=== PATIENT | female | born 1985 | race Caucasian/White ===

== ENCOUNTER 2017-04-30 08:00 | Outpatient (CLI) | payer MEDICAID ==
[2017-04-30 18:57] LABS: BILIRUBIN,URINE NEGATIVE (NEGATIVE)
[2017-04-30 19:18] LABS: UR CULTURE IF IND NOT INDICATED; WBC,URINE 0-3 /HPF (0-5)
== END 2017-04-30 08:01 | disposition home or self-care (01) ==
LOC: LAB.R 08:00
PROVIDERS: ATTEND Nurse Practitioner Family
DX: R63.1 Polydipsia (principal)
CPT/HCPCS: 81001; 87086

== ENCOUNTER 2018-01-22 22:57 | Emergency (ER) | payer MEDICAID ==
[2018-01-22 23:13] VITALS: BP 134/94
[2018-01-22] MEDS ORDERED: BUPIVACAINE 0.5% PF 30 ML VIAL SUBQ STA (23:20)
[2018-01-22] MEDS ORDERED: BUPIVACAINE 0.25% PF 30 ML VIAL SUBQ STA (23:24)
--- NOTE | 2018-01-22 23:44 | ED Physician Documentation ---
PD HPI HEENT - Stated complaint Stated Complaint: DENTAL PAIN - Chief complaint Chief Complaint: Heent - History obtained from History obtained from: Patient - History of Present Illness Timing - onset: Chronic Timing - details: Gradual onset, Still present Location: Tooth Worsens: Temperatures Similar symptoms before: Work up / diagnostics, Treatment - Additional information Additional information: Patient is a 32 year old female presenting to the emergency department for dental pain. Patient states that she has really bad teeth and she is supposed to have dental follow up in a few days but she cannot get any pain relief. 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 - Present Medications Home Medications: Ambulatory Orders Medication Instructions Recorded Confirmed Dicyclomine HCl [Bentyl] 20 mg PO TID PRN #30 tablet 06/24/14 HYDROcod/ACETAM 5/325 [Vicodin 1 - 2 ea PO Q6H PRN #15 tablet 06/24/14 5/325] Levonorgestrel [Mirena] 06/24/14 06/24/14 - Allergies Allergies/Adverse Reactions: Allergies Allergy/AdvReac Type Severity Reaction Status Date / Time No Known Drug Allergies Allergy Verified 02/26/13 20:35 - Social History Does the pt smoke?: Yes Smoking Status: Current every day smoker Does the pt drink ETOH?: Yes Does the pt have substance abuse?: No - Immunizations Immunizations are current?: Yes - POLST Patient has POLST: Yes PD ED PE NORMAL - General General: Alert and oriented X 3 - HEENT HEENT: Atraumatic - Neck Neck: No adenopathy - Cardiac Cardiac: RRR - Respiratory Respiratory: No respiratory distress - Derm Derm: Normal color - Extremities Extremities: No deformity - Neuro Eye Opening: Spontaneous PD ED PE EXPANDED - General General: Alert, In Pain - HEENT HEENT: Dental decay, Dental TTP, Other (many missing teeth, the only superior and inferior molars remaining on the right are both cracked. no surrounding abscess or fluid collection). No: Dental abscess Results - Vitals Vitals: Vital Signs - 24 hr 01/22/18 23:01 Heart Rate 98 Respiratory 16 Rate Blood Pressure 134/94 H O2 Saturation 96 Oxygen O2 Source Room air Procedures - Regional nerve block Nerve block site: Post superior alveolar, Inferior alveolar Nerve block anesthesia: Marcaine 0.25% Nerve block aftercare: Excellent anesthesia, No complications PD MEDICAL DECISION MAKING - ED course Complexity details: reviewed old records, reviewed results, re-evaluated patient , considered differential, d/w patient ED course: Patient was seen and examined at bedside. Patient did have cracked teeth and likely exposed roots. superior alveolar and inferior alveolar nerve blocks were performed. cavit was placed on both teeth. Patient had good pain relief. Patient required no further work up and was stable for discharge with outpatient follow up. - Sepsis Event Vital Signs: Vital Signs - 24 hr 01/22/18 23:01 Heart Rate 98 Respiratory 16 Rate Blood Pressure 134/94 H O2 Saturation 96 Oxygen O2 Source Room air Departure - Departure Disposition: 01 Home, Self Care Clinical Impression: Pain due to dental caries Condition: Good Instructions: ED Tooth Pain Follow-Up: primary,dentist [Other] Comments: Your symptoms are likely being caused by exposed nerve roots. Ultimately you will need to follow up with your dentist and have your teeth pulled. you can replace the cavit (cement substance) if it falls out. You should take ibuprofen 600mg with tylenol 1000mg for pain relief. you should avoid very hot or very cold foods. you may return to the emergency department at any time for new, worsening or uncontrollable symptoms.
== END 2018-01-22 23:48 | disposition home or self-care (01) ==
LOC: ED 22:57
DX: K02.9 Dental caries, unspecified (principal); F17.200 Nicotine dependence, unspecified, uncomplicated
CPT/HCPCS: 64400; 99282

== ENCOUNTER 2018-02-16 22:17 | Outpatient (CLI) | payer MEDICAID | END 2018-02-16 22:18 | disposition critical access hospital (66) | LOC: EMS 22:17 | PROVIDERS: ATTEND Surgery | DX: R40.20 Unspecified coma (principal); R06.81 Apnea, not elsewhere classified | CPT/HCPCS: A0425; A0427; A0999 ==

== ENCOUNTER 2018-02-16 22:46 | Emergency (ER) | payer MEDICAID ==
[2018-02-16] MEDS ORDERED: SODIUM CHLORIDE 0.9% 1,000 ML IV ONE (23:06)
[2018-02-16 23:35] LABS: MUDS CUTOFF CONCENTRATIONS CUTOFF CONC BELOW:
[2018-02-17 00:13] LABS: AMPHETAMINE SCREEN,URINE NEGATIVE (NEGATIVE); BENZODIAZEPINES SCREEN, URINE NEGATIVE (NEGATIVE); COCAINE SCREEN URINE NEGATIVE (NEGATIVE); METHADONE SCREEN, URINE NEGATIVE (NEGATIVE); METHAMPHETAMINES SCREEN, URINE NEGATIVE (NEGATIVE); OPIATE SCREEN, URINE POSITIVE (NEGATIVE); OXYCODONE SCREEN, URINE NEGATIVE (NEGATIVE); PROPOXYPHENE SCREEN, URINE NEGATIVE (NEGATIVE); TRICYCLIC ANTIDEPRESSANT,URINE NEGATIVE (NEGATIVE)
--- NOTE | 2018-02-17 00:54 | ED Physician Documentation ---
History of Present Illness - Stated complaint Stated Complaint: Poss OD - Chief complaint Chief Complaint: MHE - History obtained from History obtained from: Patient - History of Present Illness Timing: Today - Additonal information Additional information: patient says she was with friend this evening, had dental pain due to recent procedure, and a friend gave he a pill that she says dont know, but I think it was oxy 30 mg tab (per patient). She took this and does not remember anything until being woken by medics after giving her narcan. she feel fine now but agrees with transport. on presentstion, she had no c/o. Review of Systems Cardiac: reports: Reviewed and negative Respiratory: reports: Reviewed and negative GI: reports: Reviewed and negative Neurologic: reports: Altered mental status, Unresponsive, LOC. 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 - Present Medications Home Medications: Ambulatory Orders Medication Instructions Recorded Confirmed Levonorgestrel [Mirena] 06/24/14 06/24/14 Sertraline [Zoloft] 100 mg PO DAILY 02/16/18 - Allergies Allergies/Adverse Reactions: Allergies Allergy/AdvReac Type Severity Reaction Status Date / Time No Known Drug Allergies Allergy Verified 02/16/18 22:54 - Social History Does the pt smoke?: Yes Smoking Status: Current every day smoker Does the pt drink ETOH?: Yes Does the pt have substance abuse?: No Substance Use and Type: Marijuana - Immunizations Immunizations are current?: Yes - POLST Patient has POLST: Yes PD ED PE NORMAL - Vitals Vital signs reviewed: Yes - General General: Alert and oriented X 3, No acute distress, Well developed/nourished - HEENT HEENT: Atraumatic, PERRL, EOMI, Moist mucous membranes - Neck Neck: No bony TTP - Cardiac Cardiac: RRR, No murmur - Respiratory Respiratory: No respiratory distress, Clear bilaterally - Derm Derm: Normal color, Warm and dry - Neuro Neuro: Alert and oriented X 3, hand welt butter 2-12 intact, No motor deficit, No sensory deficit, Normal speech Results - Vitals Vitals: Oxygen O2 Source Room air - Labs Labs: Laboratory Tests 02/16/18 23:17 Urine Opiates Screen POSITIVE H Ur Oxycodone Screen NEGATIVE Urine Methadone Screen NEGATIVE Ur Propoxyphene Screen NEGATIVE Ur Barbiturates Screen NEGATIVE Ur Tricyclics Screen NEGATIVE Ur Phencyclidine Scrn NEGATIVE Ur Amphetamine Screen NEGATIVE U Methamphetamines Scrn NEGATIVE U Benzodiazepines Scrn NEGATIVE Urine Cocaine Screen NEGATIVE U Cannabinoids Screen NEGATIVE PD MEDICAL DECISION MAKING - ED course Complexity details: considered differential, d/w patient - Sepsis Event Vital Signs: Oxygen O2 Source Room air Departure - Departure Disposition: 01 Home, Self Care Clinical Impression: Drug overdose Qualifiers: Encounter type: initial encounter Injury intent: accidental or unintentional Qualified Code(s): T50.901A - Poisoning by unspecified drugs, medicaments and biological substances, accidental (unintentional), initial encounter Condition: Good Instructions: ED Overdose Accidental Discharge Date/Time: 02/17/18 01:17
[2018-02-17 00:56] VITALS: BP 122/83
== END 2018-02-17 01:17 | disposition home or self-care (01) ==
LOC: EDUNIT# → ED 22:46
DX: T50.901A Poisoning by unspecified drugs, medicaments and biological substances, accidental (unintentional), initial encounter (principal); I10 Essential (primary) hypertension; F17.200 Nicotine dependence, unspecified, uncomplicated
CPT/HCPCS: 80306; 93005; 96360; 99283

== ENCOUNTER 2018-05-05 02:59 | Emergency (ER) | payer MEDICAID ==
--- NOTE | 2018-05-05 03:39 | ED Physician Documentation ---
History of Present Illness - Stated complaint Stated Complaint: MED WITHDRAWAL - Chief complaint Chief Complaint: General - History obtained from History obtained from: Patient - History of Present Illness Timing: Enter time (01:30) Pain level now: 3 Improved by: nothing Worsened by: no exacerbating factors - Additonal information Additional information: patient says she has been taking fentanyl, obtained on the street, for several weeks. Yesterday, she was seen at a clinic in [facility], was prescribed Suboxone, took first dose at 1:30 this morning. She feels that this has put me into acute withdrawal. She complains of generalized anxiety, tremulousness. of note, patient presents with a friend who is also registered as a patient in the emergency department for the exact same thing (also withdrawing from fentanyl, also saw same clinic, also took first dose of suboxone tonight). Review of Systems Constitutional: reports: Chills, Myalgias, Sweats Cardiac: reports: Reviewed and negative Respiratory: reports: Reviewed and negative GI: denies: Abdominal Pain, Nausea, Vomiting Psychiatric: reports: Anxiety, Insomnia. 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 - Present Medications Home Medications: Ambulatory Orders Medication Instructions Recorded Confirmed Levonorgestrel [Mirena] 06/24/14 06/24/14 Sertraline [Zoloft] 100 mg PO DAILY 02/16/18 LORazepam [Lorazepam] 1 - 2 mg PO TID PRN #14 tablet 05/05/18 - Allergies Allergies/Adverse Reactions: Allergies Allergy/AdvReac Type Severity Reaction Status Date / Time No Known Drug Allergies Allergy Verified 05/05/18 03:25 - Social History Does the pt smoke?: Yes Smoking Status: Current every day smoker Does the pt drink ETOH?: Yes Does the pt have substance abuse?: No - Immunizations Immunizations are current?: Yes - POLST Patient has POLST: Yes PD ED PE NORMAL - Vitals Vital signs reviewed: Yes - General General: Alert and oriented X 3, Well developed/nourished, Other (appears mildly anxious) - HEENT HEENT: Moist mucous membranes - Cardiac Cardiac: RRR, No murmur - Respiratory Respiratory: No respiratory distress, Clear bilaterally - Abdomen Abdomen: Normal bowel sounds, Soft, Non tender - Neuro Neuro: Alert and oriented X 3 Eye Opening: Spontaneous Motor: Obeys Commands Verbal: Oriented GCS Score: 15 Results - Vitals Vitals: Oxygen O2 Source Room air PD MEDICAL DECISION MAKING - ED course Complexity details: reviewed old records, considered differential, d/w patient ED course: given ativan and clonidine, rx for same. she did not bargain or argue over medications, made no requests for specific medications nor doses, and seemed co ntent with plan. - Sepsis Event Vital Signs: Oxygen O2 Source Room air Departure - Departure Disposition: Home, Self Care Clinical Impression: Narcotic withdrawal Condition: Good Instructions: ED Withdrawal Narcotic Follow-Up: [facility] [Provider Group] [facility] [Provider Group] Prescriptions: LORazepam [Lorazepam] 1 - 2 mg PO TID PRN #14 tablet PRN Reason: Anxiety Discharge Date/Time: 05/05/18 05:00
[2018-05-05] MEDS ORDERED: cloNIDine 0.1 MG TABLET PO STA (03:53)
[2018-05-05] MEDS ORDERED: LORazepam 0.5 MG TABLET PO STA (03:58)
[2018-05-05 04:56] VITALS: BP 108/57
== END 2018-05-05 05:00 | disposition home or self-care (01) ==
LOC: ED 02:59
DX: F11.23 Opioid dependence with withdrawal (principal); T40.2X5A Adverse effect of other opioids, initial encounter; I10 Essential (primary) hypertension; F17.200 Nicotine dependence, unspecified, uncomplicated
CPT/HCPCS: 99283; A9270

== ENCOUNTER 2019-02-01 07:56 | Outpatient (CLI) | payer SELFPAY ==
[2019-02-01 10:25] LABS: BASOPHILS % (AUTO) 0.5 %; EOSINOPHILS # (AUTO) 0.3 10^3/uL (0.0-0.7); EOSINOPHILS % (AUTO) 4.6 %; HGB - HEMOGLOBIN 14.1 g/dL (12.0-16.0); LYMPHOCYTES # (AUTO) 2.2 10^3/uL (1.5-3.5); LYMPHOCYTES % (AUTO) 39.9 %; MEAN CORPUSCULAR HEMOGLOBIN 31.8 pg (27.0-31.0); MEAN CORPUSCULAR VOLUME 96.4 fL (81.0-99.0); MEAN PLATELET VOLUME 9.7 fL (7.9-10.8); MONOCYTES # (AUTO) 0.7 10^3/uL (0.0-1.0); MONOCYTES % (AUTO) 11.6 %; NEUTROPHILS # (AUTO) 2.4 10^3/uL (1.5-6.6); NEUTROPHILS % (AUTO) 43.2 %; PLT - PLATELET COUNT 240 10^3/uL (130-450); RED BLOOD COUNT 4.43 10^6/uL (4.20-5.40); RED CELL DISTRIBUTION WIDTH 11.9 % (12.0-15.0); WHITE BLOOD COUNT 5.6 x10^3/uL (4.8-10.8)
[2019-02-01 10:37] LABS: ALBUMIN/GLOBULIN RATIO 1.3 (1.0-2.2); ALKALINE PHOSPHATASE 38 IU/L (42-121); ALT ALANINE AMINOTRANSFERASE 27 IU/L (10-60); AST ASPARTATE AMINOTRANSFERASE 46 IU/L (10-42); BILIRUBIN,TOTAL 0.7 mg/dL (0.2-1.0); BUN - BLOOD UREA NITROGEN 13 mg/dL (6-20); CALCIUM 9.3 mg/dL (8.5-10.3); CARBON DIOXIDE - CO2 25 mmol/L (21-32); CHLORIDE 101 mmol/L (101-111); CHOL/HDL RATIO 3.3 (<4.4); CHOLESTEROL 187 mg/dL; CREATININE 0.5 mg/dL (0.4-1.0); GFR - MDRD 141 (>89); GLUCOSE 104 mg/dL (70-100); HDL CHOLESTEROL 57 mg/dL; LDL CHOLESTEROL,CALCULATED 82 mg/dL; LDL/HDL RATIO 1.4 (<4.4); SODIUM 137 mmol/L (135-145); TOTAL PROTEIN 7.2 g/dL (6.7-8.2); VLDL CHOLESTEROL 48 mg/dL
== END 2019-02-01 07:57 | disposition home or self-care (01) ==
LOC: LAB.F 07:56
PROVIDERS: ATTEND Physician Assistant Medical
DX: I10 Essential (primary) hypertension (principal); E04.9 Nontoxic goiter, unspecified; Z13.29 Encounter for screening for other suspected endocrine disorder; Z13.89 Encounter for screening for other disorder
CPT/HCPCS: 36415; 80050; 80061; 83721

== ENCOUNTER 2019-05-31 21:00 | Emergency (ER) | payer SELFPAY ==
[2019-05-31] MEDS ORDERED: BUPRENORPHINE 0.3 MG/ML VIAL IM ONE (21:19)
--- NOTE | 2019-05-31 21:22 | ED Physician Documentation ---
History of Present Illness - Stated complaint Stated Complaint: OPIATE WITHDRAWAL - Chief complaint Chief Complaint: General - History obtained from History obtained from: Patient - History of Present Illness Timing: Today (33-year-old woman with narcotic dependence plans to enroll in a Suboxone treatment plan tomorrow. She Usually takes about 4 to 5 x 30 mg oxycodone per day, today has only taken 1 and complains of body wide pain, nausea and jitteriness. She denies other ongoing substance use or possibility of .) Review of Systems Constitutional: reports: Chills. 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 - Present Medications Home Medications: Ambulatory Orders Medication Instructions Recorded Confirmed Levonorgestrel [Mirena] 06/24/14 06/24/14 Sertraline [Zoloft] 100 mg PO DAILY 02/16/18 LORazepam [Lorazepam] 1 - 2 mg PO TID PRN #14 tablet 05/05/18 - Allergies Allergies/Adverse Reactions: Allergies Allergy/AdvReac Type Severity Reaction Status Date / Time No Known Drug Allergies Allergy Verified 05/31/19 21:08 - Social History Does the pt smoke?: Yes Smoking Status: Current every day smoker Does the pt drink ETOH?: Yes Does the pt have substance abuse?: No - Immunizations Immunizations are current?: Yes - POLST Patient has POLST: Yes PD ED PE NORMAL - Vitals Vital signs reviewed: Yes - General General: Alert and oriented X 3, Other (Slightly anxious) - Derm Derm: Normal color, Warm and dry - Extremities Extremities: No edema, No calf tenderness / cord - Neuro Neuro: Alert and oriented X 3, Normal speech Results - Vitals Vitals: Vital Signs - 24 hr 05/31/19 05/31/19 21:03 22:18 Temperature 37.2 C 36.6 C Heart Rate 104 H 82 Respiratory 18 16 Rate Blood Pressure 152/111 H 143/94 H O2 Saturation 98 98 Oxygen O2 Source Room air PD MEDICAL DECISION MAKING - ED course ED course: This is a 33-year-old woman undergoing narcotic withdrawal. She is administered 300 mg IM Of buprenorphine here pending her Suboxone enrollment tomorrow She had told me she had a ride though, I discussed with her that she would not be able to drive after this treatment tonight. She agreed. She was witnessed after discharge driving away. I stopped her in the parking lot, she gave me her keys and I left them at the front window cashier. Letting the front window cashier staff know that she should not get these back to her until she has a ride. Departure - Departure Disposition: 01 Home, Self Care Clinical Impression: Narcotic withdrawal Condition: Good Record reviewed to determine appropriate education?: Yes Instructions: ED Narcotic Abuse Comments: Continue your plans to enroll with [facility] tomorrow. Return if worse. Do not drive tonight. Discharge Date/Time: 05/31/19 22:18
[2019-05-31 22:18] VITALS: BP 143/94
== END 2019-05-31 22:18 | disposition home or self-care (01) ==
LOC: ED 21:00
DX: F11.23 Opioid dependence with withdrawal (principal); I10 Essential (primary) hypertension; F17.200 Nicotine dependence, unspecified, uncomplicated
CPT/HCPCS: 96372; 99282; 99283; J0592

== ENCOUNTER 2020-09-28 03:34 | Outpatient (CLI) | payer MEDICAID | END 2020-09-28 03:35 | disposition critical access hospital (66) | LOC: EMS 03:34 | PROVIDERS: ATTEND Emergency Medicine | DX: R68.83 Chills (without fever) (principal); M79.10 Myalgia, unspecified site; F41.9 Anxiety disorder, unspecified; R45.1 Restlessness and agitation; R53.1 Weakness | CPT/HCPCS: A0425; A0429; A0999 ==

== ENCOUNTER 2020-09-28 04:04 | Emergency (ER) | payer MEDICAID ==
--- NOTE | 2020-09-28 04:07 | ED Physician Documentation ---
History of Present Illness - Stated complaint Stated Complaint: SHAKINESS - History obtained from History obtained from: Patient, EMS - History of Present Illness Timing: Enter time (02:00), Today Pain level now: 6 Improved by: nothing Worsened by: worse after taking suboxone - Additonal information Additional information: BIBA. patient c/o flu-like symptoms (per patient). she says her symptoms began around 2 AM; generalized myalgias, chills, malaise. she says she took a dose of suboxone thinking that would help but she her symptoms worsened. Review of Systems Constitutional: reports: Chills, Myalgias. denies: Fever Ears: reports: Reviewed and negative Throat: denies: Sore throat Cardiac: reports: Reviewed and negative Respiratory: reports: Reviewed and negative GI: reports: Reviewed and negative : denies: Now EGA PD PAST MEDICAL HISTORY - Past Medical History Past Medical History: No - Present Medications Home Medications: Ambulatory Orders Medication Instructions Recorded Confirmed Buprenorphine HCl/Naloxone HCl 09/28/20 [Suboxone 2-0.5 mg Sl tab] cloNIDine [Catapres] 0.1 mg PO BID #8 09/28/20 diazePAM [Valium] 5 - 10 mg PO TID PRN #15 09/28/20 - Allergies Allergies/Adverse Reactions: Allergies Allergy/AdvReac Type Severity Reaction Status Date / Time No Known Drug Allergies Allergy Verified 09/28/20 04:18 PD ED PE NORMAL - Vitals Vital signs reviewed: Yes - General General: Alert and oriented X 3, Well developed/nourished, Other (appears uncomfortable, restless, mildly anxious. she is cooperative and polite) - HEENT HEENT: Moist mucous membranes, Pharynx benign - Neck Neck: Supple, no meningeal sign - Cardiac Cardiac: No murmur - Respiratory Respiratory: No respiratory distress, Clear bilaterally - Derm Derm: Normal color, Warm and dry PD ED PE EXPANDED - Cardiac Cardiac: Tachy, Regular Rhythm Results - Vitals Vitals: Oxygen O2 Source Room air - Labs Labs: Laboratory Tests 09/28/20 04:47 Nasal Adenovirus (PCR) NOT DETECTED Nasal B. parapertussis DNA (PCR) NOT DETECTED Nasal Coronavir 229E PCR NOT DETECTED Nasal Coronavir HKU1 PCR NOT DETECTED Nasal Coronavir NL63 PCR NOT DETECTED Nasal Coronavir OC43 PCR NOT DETECTED Nasal Enterovir/Rhinovir PCR NOT DETECTED Nasal Influenza B PCR NOT DETECTED Nasal Influenza A PCR NOT DETECTED Nasal Parainfluen 1 PCR NOT DETECTED Nasal Parainfluen 2 PCR NOT DETECTED Nasal Parainfluen 3 PCR NOT DETECTED Nasal Parainfluen 4 PCR NOT DETECTED Nasal RSV (PCR) NOT DETECTED Nasal B.pertussis DNA PCR NOT DETECTED Nasal C.pneumoniae (PCR) NOT DETECTED Ward Human Metapneumo PCR NOT DETECTED Nasal M.pneumoniae (PCR) NOT DETECTED Nasal SARS-CoV-2 (PCR) NOT DETECTED PD MEDICAL DECISION MAKING - ED course Complexity details: reviewed old records, reviewed results, re-evaluated patient, considered differential, d/w patient ED course: The differential diagnosis for this patient symptoms would include viral syndrome such as influenza, but more likely to be related to withdrawal from opiates given her documented history of previous visits to the emergency department for opiate withdrawal. she initially indicates to me that she has not taken any opiate medication recently, and that the most recent use of opiates/ narcotics was prescribed oxycodone related to a knee surgery she had several months ago. However, on further discussion, she indicates to me that she recently had been provided another prescription for this medication due to knee pain that she attributes to recent physical therapy. further discussion did not clarify how much medication she had been prescribed nor the frequency she had been taking such medication. She indicated to me that the Suboxone she took this morning was from a prescription she had been provided nearly one year ago; if the patient has been taking or using opiate medications recently, withdrawal could have been precipitated or exacerbated by the naloxone content of the Suboxone. She appears to be uncomfortable on the initial exam, appears restless and anxious. She appeared increasingly comfortable after I am lorazepam and oral clonidine although she reported this did not provide any relief. She subsequently given IM buprenorphine and on subsequent reevaluations, she appears to have brief periods of sleep, although she does still appear mildly anxious when working and does frequently shift and reposition herself. She did not bargain nor argue regarding medications that were given and eventually was discharged from emergency Department with prescriptions for diazepam and clonidine Departure - Departure Disposition: 01 Home, Self Care Clinical Impression: Generalized muscle ache Condition: Good Instructions: ED Muscle Aching, ED Acute Pain [facility] Follow-Up: Bernice Shipley PA-C [Primary Care Provider] - Prescriptions: cloNIDine [Catapres] 0.1 mg PO BID #8 diazePAM [Valium] 5 - 10 mg PO TID PRN #15 PRN Reason: Spasms Discharge Date/Time: 09/28/20 09:00
[2020-09-28] MEDS ORDERED: LORazepam 2 MG/ML VIAL IM STA (04:28)
[2020-09-28] MEDS ORDERED: cloNIDine 0.1 MG TABLET PO STA (04:30)
[2020-09-28] MEDS ORDERED: BUPRENORPHINE 0.3 MG/ML VIAL IM STA (05:36)
[2020-09-28 05:47] LABS: C. PNEUMONIAE- RESP PCR PANEL NOT DETECTED
[2020-09-28] MEDS ORDERED: LORazepam 0.5 MG TABLET PO STA (07:37)
[2020-09-28 09:06] VITALS: BP 109/72
== END 2020-09-28 09:00 | disposition home or self-care (01) ==
LOC: EDUNIT# → ED 04:04 → SUPCPDRO 04:04 → ED 09:00
DX: M79.10 Myalgia, unspecified site (principal); R53.81 Other malaise; R68.83 Chills (without fever); F41.9 Anxiety disorder, unspecified; Z20.822 Contact with and (suspected) exposure to COVID-19
CPT/HCPCS: 0202U; 96372; 99283; 99284; A9270; J0592; J2060